=== PATIENT | female | born 1965 | race Caucasian/White ===

== ENCOUNTER 2021-08-11 10:40 | Inpatient (IN) ==
[2021-08-11] MEDS ORDERED: ASPIRIN 81 MG CHEW PO STA (11:21)
--- NOTE | 2021-08-11 11:26 | Emergency Department Note ---
Impression & Plan Unstable angina, Acute electrocardiogram changes ED Provider Note Name: CHANDU GLEZ Age: 56 Sex: F Arrives Via: Walk-In Informant: Patient, ED Provider: Meek Wong MD Chief Complaint: chest pain Impression: As Per Impressions above Medical Decision Makin yr old female without PMH who has 30pack yr smoking history arrives for evaluation substernal chest pain radiating to left neck and shoulder, worsening with exertion over the last week, though occurring at rest at times today. Chest pain while walking to room for EKG, though pain resolved on my evaluation shortly there-after. EKG initially with concerns for ischemia, repeat when pain free is essentially normal. Patient looks well and is breathing comfortably. Symptoms not consistent with PE/Dissection. Initial trop negative and other labs unremarkable. With dynamic EKG changes I am concerned for ACS as primary issue. She was given ASA 324mg PO and hospitalist consulted and will further address heparin start. Prior Medical Record and Triage/Nursing Notes reviewed by Me Differentials:Cardiac ischemia, aortic dissection, pulmonary embolism, pneumothorax, pneumonia, pericarditis, myocarditis, esophageal rupture, GERD, cholecystitis, pancreatitis, musculoskeletal, as well as other pathologies. Vital Signs: reviewed and remarkable for no significant abnormalities Interventions: asa 324mg po Labs:Reviewed and remarkable for no significant abnormalities Imaging:X ray results are stated below per my interpretation: Chest: 1 view: No infiltrate, no effusion, normal cardiac border. EKG: #1 @ 11:14am on 08/11/21: Per My Interpretation: Indication Chest pain: NSR 90 b pm, qtc 481 with RBBB, ST depressions I, aVL, and <1mm elevation III. No Ectopy. No previous EKG for comparison #2 @ 11:25am on 08/11/21: Per My Interpretation: Indication Resolution of chest pain: NSR 82 bpm, qtc 455. No Ectopy. No Ischemia. Compared to EKG at 11:14am there has been resolution of ischemic findings Cardiac/Tele Monitoring: Cardiac Monitoring: An Order was placed for continuous cardiac monitoring. The monitor shows a rate of 80 with a normal sinus rhythm. Consults:Anaid Hospitalist Plan: Disposition:Hospitalization. Condition: Good History of Present Illness:56 yr old female arrives for evaluation of left chest pain. Patient with 1 week of intermittent chest pains. Notes pain to left chest radiating to left neck and left upper arm. Associated with nausea. Notes some shortness of breath with exertion recently. Symptoms much worse with exertion, including coming in to ED this morning. Currently pain free. No medications taken for this. Rest makes better. Denies trauma, injuries, falls. No history CAD. She has history of smoking 1ppd since 18 yrs old. No drug use. No family history CAD. No previous cardiac work up. Denies PE/DVT history in her/family. ROS: See above HPI for pertinent positives & negatives. A total of 10 systems reviewed and were otherwise negative. Past Medical History:Depression/Anxiety Past Surgical History:None Family History:Mother DMII/HTN/COPD, Father Cancer Social History:Smokes 1ppd since 18 yrs old. 2 beers a night. No drugs. with 2 children. Employed Home Medications:None Allergies:None Vitals:Blood Pressure: 153/86, Pulse 102, RR 18, T 36.8C, O2 100% on RA Physical Exam: GENERAL: Patient is anxious appearing and in minimal distress. EYES: No scleral icterus, unremarkable pupils. ENT: Mucous membranes moist, no nasal congestion. NECK: No masses appreciated, nomeningismus, trachea is midline. RESPIRATORY: No dyspnea. Clear to auscultation and equal bilaterally. No wheeze, no rhonchi. CARDIOVASCULAR: Regular rate and rhythm.No murmurs, rubs, gallops appreciated. GASTROINTESTINAL: Abdomen soft, non-tender, no peritonitis.Bowel sounds posi tive.No masses appreciated. BACK: No midline tenderness, no CVA tenderness EXTREMITIES: Normal motion all extremities, no cyanosis, no edema. NEUROLOGIC: Alert and oriented, no acute motor or sensory deficits, no focal weakness, cranial nerves grossly intact. SKIN: No rash, no jaundice, no diaphoresis. PSYCH: Appropriate GCS: 15 ED Course: Times/Reassessments: stable, no further chest pain, agreeable to hospitalization Meek Wong MD Past Med/Surg History Medical History Depression with anxiety Tobacco abuse Surgical History History of colonoscopy Family History Father Cancer Mother Peripheral vascular disease Social History Smoking Status: Current every day smoker Tobacco Type: Cigarettes packs per day: 1; Years Smoked: 38; Do You Dip or Chew Tobacco: No; Tobacco Cessation Education Requested by Patient: No Hx Alcohol Use: Yes Alcohol type: beer Hx Substance Use: Yes Non-Prescribed Medications: Marijuana Non-Prescribed Medications Comment: tried edible marijuana 1 week ago x2 Last Used Substance: Days (ago) Substance Use Type Other:: Pt used edible marijuana x1 last week Preferred Language: Danish Communication Ability: Effective 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 Beliefs That Will Affect Care: None marital status: Single Current Living Situation: Family Current Living Situation Comment: Lives with Mother and fiance current occupational status: employed Feels Safe at Home: Yes Safety Concerns: Feels Safe At This Time Assistive Devices: None Allergies Allergies Allergy/AdvReac Type Severity Reaction Status Date / Time No Known Allergies Allergy Unverified 08/11/21 12:03 Home Meds Home Medications Medication Instructions Recorded Confirmed None (Patient States No Home Meds) #0 03/28/09 Results & Data (ED) Vital Signs Vital Signs - 24 hr 08/11/21 10:46 08/11/21 11:30 08/11/21 12:00 Temperature 36.8 C Temperature Source Temporal Artery Scan Pulse Rate 102 H 82 91 H Pulse Rate from SpO2 Sensor 81 Respiratory Rate 18 19 19 Respiratory Effort / Characteristics Non-Labored Respiratory Depth Normal Blood Pressure 153/86 H 159/63 H 152/77 H Blood Pressure Mean 108 95 102 Pulse Oximetry 100 98 100 Oxygen Delivery Method Room Air Sepsis Recent Fever Within 48 Hours No Sepsis New/Unexplained Change in Mental Status No Sepsis Action Taken by Nursing No Action Required 08/11/21 12:30 Temperature Temperature Source Pulse Rate 71 Pulse Rate from SpO2 Sensor 71 Respiratory Rate 18 Respiratory Effort / Characteristics Respiratory Depth Blood Pressure 134/73 Blood Pressure Mean 93 Pulse Oximetry 100 Oxygen Delivery Method Sepsis Recent Fever Within 48 Hours Sepsis New/Unexplained Change in Mental Status Sepsis Action Taken by Nursing Laboratory Data Result diagrams: 08/12/21 04:42 08/12/21 04:42 Lab Results 08/11/21 08/11/21 08/11/21 Range/Units 11:20 11:20 11:20 WBC 8.96 (4.8-10.8) K/uL RBC 4.86 (4.2-5.4) M/uL Hgb 16.2 H (12.0-16.0) g/dL Hct 47.7 H (37-47) % MCV 98.1 (80-100) fL MCH 33.3 (25-34) pg MCHC 34.0 (32-36) g/dL RDW Std Deviation 43.9 (36.4-46.3) fL RDW Coeff of Julia 12.2 (11.5-14.5) % Plt Count 309 (130-400) K/uL MPV 10.6 H (7.4-10.4) fL Immature Gran % (Auto) 0.2 % Neut % (Auto) 58.5 % Lymph % (Auto) 30.4 % [place] % (Auto) 8.5 % Eos % (Auto) 2.0 % Baso % (Auto) 0.4 % Neut # (Auto) 5.24 (1.4-6.5) K/uL Lymph # (Auto) 2.72 (1.2-3.4) K/uL [place] # (Auto) 0.76 H (0.11-0.59) K/uL Eos # (Auto) 0.18 (0-0.5) K/uL Baso # (Auto) 0.04 (0-0.2) K/uL Immature Gran # (Auto) 0.02 (0.00-0.02) K/uL PT 10.4 (9.0-12.0) Seconds INR 1.0 (0.9-1.1) APTT 29.3 (21.0-31.0) Seconds PTT Ratio 1.1 Sodium 136 (136-145) mmol/L Potassium 3.8 (3.5-5.1) mmol/L Chloride 106 (98-107) mmol/L Carbon Dioxide 26 (21-32) mmol/L Anion Gap 4.0 (3-11) BUN 8 (7-18) mg/dl Creatinine 0.89 (0.6-1.2) mg/dl Est Cr Clr Drug Dosing 60.0 ml/min Est GFR ( Amer) 85.2 ml/min Est GFR (Non-Af Amer) 73.5 ml/min BUN/Creatinine Ratio 8.9 L (10-20) Glucose 99 (70-99) mg/dl Calcium 9.6 (8.5-10.1) mg/dl Magnesium 2.4 (1.8-2.4) mg/dl Total Bilirubin 0.4 (0.2-1) mg/dl Direct Bilirubin 0.1 (0-0.2) mg/dl AST 16 (15-37) U/L ALT 26 (12-78) U/L Alkaline Phosphatase 85 (45-117) U/L Troponin I < 0.015 (0-0.045) ng/ml Total Protein 8.0 (6.4-8.2) gm/dl Albumin 3.8 (3.4-5.0) gm/dl Lipase 104 (73-393) U/L COVID-19 Eval Order SARS-CoV-2 (PCR) (Negative) 08/11/21 08/11/21 Range/Units 11:36 11:36 WBC (4.8-10.8) K/uL RBC (4.2-5.4) M/uL Hgb (12.0-16.0) g/dL Hct (37-47) % MCV (80-100) fL MCH (25-34) pg MCHC (32-36) g/dL RDW Std Deviation (36.4-46.3) fL RDW Coeff of Julia (11.5-14.5) % Plt Count (130-400) K/uL MPV (7.4-10.4) fL Immature Gran % (Auto) % Neut % (Auto) % Lymph % (Auto) % [place] % (Auto) % Eos % (Auto) % Baso % (Auto) % Neut # (Auto) (1.4-6.5) K/uL Lymph # (Auto) (1.2-3.4) K/uL [place] # (Auto) (0.11-0.59) K/uL Eos # (Auto) (0-0.5) K/uL Baso # (Auto) (0-0.2) K/uL Immature Gran # (Auto) (0.00-0.02) K/uL PT (9.0-12.0) Seconds INR (0.9-1.1) APTT (21.0-31.0) Seconds PTT Ratio Sodium (136-145) mmol/L Potassium (3.5-5.1) mmol/L Chloride (98-107) mmol/L Carbon Dioxide (21-32) mmol/L Anion Gap (3-11) BUN (7-18) mg/dl Creatinine (0.6-1.2) mg/dl Est Cr Clr Drug Dosing ml/min Est GFR ( Amer) ml/min Est GFR (Non-Af Amer) ml/min BUN/Creatinine Ratio (10-20) Glucose (70-99) mg/dl Calcium (8.5-10.1) mg/dl Magnesium (1.8-2.4) mg/dl Total Bilirubin (0.2-1) mg/dl Direct Bilirubin (0-0.2) mg/dl AST (15-37) U/L ALT (12-78) U/L Alkaline Phosphatase (45-117) U/L Troponin I (0-0.045) ng/ml Total Protein (6.4-8.2) gm/dl Albumin (3.4-5.0) gm/dl Lipase (73-393) U/L COVID-19 Eval Order Covid19 at [facility] SARS-CoV-2 (PCR) NEGATIVE (Negative) Administered Medications Heparin Sodium/Dextrose (Heparin Sodium/Dextrose) 25,000 units in 500 mls @ 18 mls/hr IV .Q24H HARRIS; Protocol Stop: 09/10/21 14:14 Last Admin: 08/11/21 22:51 Dose: 18 units/hr, 0.4 mls/hr Documented by: [id number] Cosigned by: [id number] Metoprolol Tartrate (Metoprolol Tartrate 25 Mg Tab) 12.5 mg PO BID HARRIS Stop: 09/10/21 20:59 Last Admin: 08/11/21 20:49 Dose: 12.5 mg Documented by: [id number] Discontinued Medications Aspirin (Aspirin 81 Mg Chew) 324 mg PO NOW STA Stop: 08/11/21 11:22 Last Admin: 08/11/21 11:37 Dose: 324 mg Documented by: [id number] Heparin Sodium (Porcine) (Heparin Sod (Porcine) 1000 Unit/Ml) Confirm Administered Dose 1,000 units .ROUTE .STK-MED ONE Stop: 08/11/21 14:23 Last Admin: 08/11/21 14:39 Dose: 4,000 units Documented by: [id number] Cosigned by: [id number] Heparin Sodium/Dextrose (Heparin 55038 Unit/500 Ml D5w) Confirm Administered Dose 25,000 units IV .STK-MED ONE Stop: 08/11/21 14:23 Last Admin: 08/11/21 14:39 Dose: 950 units Documented by: [id number] Cosigned by: [id number] Metoprolol Tartrate (Metoprolol Tartrate 25 Mg Tab) 12.5 mg PO NOW STA Stop: 08/11/21 13:53 Last Admin: 08/11/21 14:40 Dose: 12.5 mg Documented by: [id number] Miscellaneous (Heparin Drip Hold - Pending Order) 1 ea N/A TODAY@0400 ONE Stop: 08/12/21 04:01 Last Admin: 08/12/21 04:40 Dose: 1 ea Documented by: [id number] Discharge Plan Visit Data Chief Complaint: Chest Pain Stated Complaint: CHEST PAIN INTO LEFT NECK,ARM AND SHOULDER ED Provider: Meek Wong Discharge Problem: Unstable angina, Acute electrocardiogram changes Patient Disposition: Admitted As Inpatient Discharge Instructions Interventions: ED Discharge Assessment Last Done: 08/11/21 16:56
--- NOTE | 2021-08-11 11:44 | XRay Report ---
XR chest 1V portable CLINICAL HISTORY: left chest pain TECHNIQUE: Single frontal radiograph of the chest was obtained. Comparison: None available at the time of this dictation. FINDINGS: No lines and tubes are seen. The cardiomediastinal silhouette is normal. The lungs are clear. No evid ence of pleural effusion or pneumothorax. IMPRESSION: No acute chest disease. ACT 112: Negative or not required by law. Electronically signed by: Leighton Raza M.D. 08/11/2021 11:42 AM
[2021-08-11 11:49] LABS: Alanine Aminotransferase 26 U/L (12-78); Albumin Level 3.8 gm/dl (3.4-5.0); Aspartate Aminotransferase 16 U/L (15-37); BUN Creatinine Ratio 8.9 (10-20); Bilirubin Direct 0.1 mg/dl (0-0.2); Blood Urea Nitrogen 8 mg/dl (7-18); Calcium 9.6 mg/dl (8.5-10.1); Carbon Dioxide 26 mmol/L (21-32); Chloride 106 mmol/L (98-107); Est GFR (African American) 85.2 ml/min; Est GFR (Non-African American) 73.5 ml/min; Glucose 99 mg/dl (70-99); Lipase 104 U/L (73-393); Magnesium 2.4 mg/dl (1.8-2.4); Potassium 3.8 mmol/L (3.5-5.1); Sodium 136 mmol/L (136-145)
[2021-08-11 11:51] LABS: Partial Thromboplastin Ratio 1.1; Partial Thromboplastin Time 29.3 Seconds (21.0-31.0); Prothrombin Time 10.4 Seconds (9.0-12.0)
[2021-08-11 11:54] LABS: Alkaline Phosphatase 85 U/L (45-117); Bilirubin,Total 0.4 mg/dl (0.2-1); Troponin I < 0.015 ng/ml (0-0.045)
[2021-08-11 12:07] LABS: Basophils # (auto) 0.04 K/uL (0-0.2); Basophils % (auto) 0.4 %; Eosinophils # (auto) 0.18 K/uL (0-0.5); Hematocrit (blood only) 47.7 % (37-47); Hemoglobin 16.2 g/dL (12.0-16.0); Immature Granulocytes # (auto) 0.02 K/uL (0.00-0.02); Immature Granulocytes % (auto) 0.2 %; Lymphocytes # (auto) 2.72 K/uL (1.2-3.4); Lymphocytes % (auto) 30.4 %; Mean Corpuscular Hemoglobin 33.3 pg (25-34); Mean Corpuscular Volume 98.1 fL (80-100); Mean Platelet Volume 10.6 fL (7.4-10.4); Monocytes # (auto) 0.76 K/uL (0.11-0.59); Monocytes % (auto) 8.5 %; Neutrophils # (auto) 5.24 K/uL (1.4-6.5); Neutrophils % (auto) 58.5 %; Platelet Count 309 K/uL (130-400); RDW Coefficient of Variation 12.2 % (11.5-14.5); RDW Standard Deviation 43.9 fL (36.4-46.3); Red Blood Count 4.86 M/uL (4.2-5.4); White Blood Count 8.96 K/uL (4.8-10.8)
--- NOTE | 2021-08-11 13:41 | History & Physical Report ---
Date of Service August 11, 2021 Assessment & Plan (1) Chest pain: (2) Acute electrocardiogram changes: Plan: This is a 56-year-old female with significant past medical history of depression with anxiety, tobacco abuse and alcohol abuse who presents to ED after exp eriencing chest pain off and on x1 week. She initially noticed symptoms approximately 1 week ago when she was at rest. Pt presenting with exertional EKG changes resolving at rest with a normal first troponin concerning for coronary ischemia Admit to PCU consult Cardiology - discussed with Dr. Rios IV Heparin Start metoprolol 12.5mg bid, with first dose now NPO after midnight cycle trops a1c, lipid panel in a.m. pt with elevated hgb, maybe in setting of volume contraction vs smoking, will repeat in a.m. (3) Tobacco abuse: Plan: encourage smoking cessation given concern for ACS will hold on nicotine patch (4) Alcohol use: Plan: drinks 2 light beers daily, last drink 08/10 awss prn protocol (5) Depression with anxiety: Plan: pt with increase in anx due to social stressors encourage her to discuss with PCP post hospitalization to develop approp treatment regimen (6) DVT prophylaxis: Plan: SCDS Pt on IV heparin Dispo: PCU FULL CODE PCP: Daisy Brandt, PAC Pt was seen and examined in collaboration with Dr. Collado, please see addendum History of Present Illness Chief Complaint: Chest pain off and on x 1 week. Primary Care Provider: Sugey Brandt This is a 56-year-old female with significant past medical history of depression with anxiety, tobacco abuse and alcohol abuse who presents to ED after experiencing chest pain off and on x1 week. She initially noticed symptoms approximately 1 week ago when she was at rest. She developed left- sided chest pain that radiated to her left shoulder blade, her left jaw and her left arm that lasted approximately 1 minute. She felt this was all out and continue to monitor her symptoms. Over the past week she has had off-and-on symptoms. 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 Her symptoms were exactly the same, she rested and symptoms resolved in 1 minute. One time she did experience nausea when pain was slightly worse, but she is unable to tell if she is experiencing diaphoresis due to going through, "changes of life." She denies any lightheadedness, dizziness, palpitations or shortness of breath. She does admit to having a significant amount of stress in life as her 76-year-old mother does live with her. She feels like she has the same routine day in and day out and is unable to do anything. She has always been an anxious person throughout her life but has significantly gotten much worse. She admits to needing to discuss this with her primary care doctor. She is a never experienc ed symptoms like this in the past. Due to her recent symptoms she opted to be evaluated in ED today. Upon walking from the waiting room back to her room in situ an EKG was obtained which revealed T wave inversions in V1 V2 as well as right bundle jerome block and nonspecific ST changes in leads II and III. An EKG approximately 10 minutes later revealed normal sinus rhythm and normal ST and T waves throughout. She is a 1 pack/day smoker over the past 38 years. She drinks 2 beers a day. She does not take any prescription medicine and does not follow with a doctor regularly. Her mother has a known history of vascular disease requiring stents in her neck as well as her extremities but denies any history of heart disease. She is unaware of father's medical problems except for cancer as she states, "I did not know him." She has otherwise been in her normal state of health. In ED patient's vital signs remained stable. Her initial troponin was negative. She did receive 324 mg of aspirin. Allergies Allergy/AdvReac Type Severity Reaction Status Date / Time No Known Allergies Allergy Unverified 08/11/21 12:03 Past Med/Surg History Medical History Depression with anxiety Tobacco abuse Surgical History History of colonoscopy Family History Father Cancer Mother Peripheral vascular disease Social History Smoking Status: Current every day smoker Tobacco Type: Cigarettes packs per day: 1; Years Smoked: 38; Do You Dip or Chew Tobacco: No; Tobacco Cessation Education Requested by Patient: No Hx Alcohol Use: Yes Alcohol type: beer Hx Substance Use: Yes Non-Prescribed Medications: Marijuana Non-Prescribed Medications Comment: tried edible marijuana 1 week ago x2 Last Used Substance: Days (ago) Substance Use Type Other:: Pt used edible marijuana x1 last week Preferred Language: Sami Communication Ability: Effective 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 Beliefs That Will Affect Care: None marital status: Single Current Living Situation: Family Current Living Situation Comment: Lives with Mother and fiance current occupational status: employed Feels Safe at Home: Yes Safety Concerns: Feels Safe At This Time Review of Systems Review of Systems: All systems reviewed & are unremarkable except as noted in HPI & below Physical Exam Physical Exam: Constitutional: WD/WN, vitals as above, NAD, sitting up in bed, pleasant but anxious and tearful, conversing easily Head: Normocephalic, Atraumatic Eyes: PERRL, conjunctivae normal, anicteric sclerae ENMT: external ear and nose normal, oropharynx normal Neck: trachea midline, no thyromegaly normal visual inspection Respiratory: normal respiratory effort, lungs clear to auscultation, no wheeze, rales, rhonchi. Normal insp/exp effort, no accessory muscle use Cardiovascular: RRR, no murmur, no edema Vessels: no JVD or carotid bruit Chest: normal inspection of chest Abdomen: normal bowel sounds, soft, nontender, no hepatosplenomegaly Musculoskeletal: no cyanosis or clubbing, extremities motor strength 5/5 Skin: no rashes, warm and dry normal turgor Neurologic: PERRL, EOMI, accommodation nl, no face palsy, no dysarthria CN's II-XI intact bilaterally and moves all extremities Psychiatric: A+Ox3, euthymic affect Lymphatic: no cervical or axillary lymphadenopathy : deferred Results & Data Results & Data ([facility]) Vital Signs (Past 12 Hours) Vital Signs Temp Pulse Resp BP Pulse Ox 08/11/21 10:46 36.8 C 102 H 18 153/86 H 100 Diagnostic Findings Chest X-Ray 08/11/21 11:22 XR chest 1V portable CLINICAL HISTORY: left chest pain TECHNIQUE: Single frontal radiograph of the chest was obtained. Comparison: None available at the time of this dictation. FINDINGS: No lines and tubes are seen. The cardiomediastinal silhouette is normal. The lungs are clear. No evidence of pleural effusion or pneumothorax. IMPRESSION: No acute chest disease. ACT 112: Negative or not required by law. Electronically signed by: Leighton Raza M.D. 08/11/2021 11:42 AM Medications Administered Medication List Discontinued Medications Aspirin (Aspirin 81 Mg Chew) 324 mg PO NOW STA Stop: 08/11/21 11:22 Last Admin: 08/11/21 11:37 Dose: 324 mg Documented by: [id number] ECG Rate (beats per minute): 90 Rhythm: normal sinus Findings: + T-wave inversion and + ST elevation Additional Comments: Initial EKG at 1114 revealed normal sinus rhythm at 90 bpm, T wave inversion in V1 V2, right bundle branch block, ST wave nonspecific changes in leads II and III EKG at 1125 revealed normal sinus rhythm at [address] or T wave changes. Right bundle branch block also noted. COVID-19 Results Results COVID-19 Adm Lab Results: RBC 4.86 M/uL (4.2-5.4) 08/11/21 WBC 8.96 K/uL (4.8-10.8) 08/11/21 Hgb 16.2 g/dL (12.0-16.0) H 08/11/21 Hct 47.7 % (37-47) H 08/11/21 Plt Count 309 K/uL (130-400) 08/11/21 Neutrophils (%) (Auto) 58.5 % 08/11/21 Lymphocytes (%) (Auto) 30.4 % 08/11/21 Monocytes # (Auto) 0.76 K/uL (0.11-0.59) H 08/11/21 Eosinophils # (Auto) 0.18 K/uL (0-0.5) 08/11/21 Immature Granulocyte % (Auto) 0.2 % 08/11/21 Neutrophils # (Auto) 5.24 K/uL (1.4-6.5) 08/11/21 Lymphocytes # (Auto) 2.72 K/uL (1.2-3.4) 08/11/21 Monocytes # (Auto) 0.76 K/uL (0.11-0.59) H 08/11/21 Eosinophils # (Auto) 0.18 K/uL (0-0.5) 08/11/21 Basophils # (Auto) 0.04 K/uL (0-0.2) 08/11/21 Immature Granulocyte # (Auto) 0.02 K/uL (0.00-0.02) 08/11/21 Na 136 mmol/L (136-145) 08/11/21 K 3.8 mmol/L (3.5-5.1) 08/11/21 Cl 106 mmol/L (98-107) 08/11/21 CO2 26 mmol/L (21-32) 08/11/21 Anion Gap 4.0 (3-11) 08/11/21 BUN 8 mg/dl (7-18) 08/11/21 Creatinine 0.89 mg/dl (0.6-1.2) 08/11/21 BUN/Creatinine Ratio 8.9 (10-20) L 08/11/21 Glucose Level 99 mg/dl (70-99) 08/11/21 Ca 9.6 mg/dl (8.5-10.1) 08/11/21 Total Bilirubin 0.4 mg/dl (0.2-1) 08/11/21 Direct Bilirubin 0.1 mg/dl (0-0.2) 08/11/21 AST/SGOT 16 U/L (15-37) 08/11/21 ALT/SGPT 26 U/L (12-78) 08/11/21 Alkaline Phosphatase 85 U/L (45-117) 08/11/21 Total Protein 8.0 gm/dl (6.4-8.2) 08/11/21 Albumin 3.8 gm/dl (3.4-5.0) 08/11/21 Troponin I < 0.015 ng/ml (0-0.045) 08/11/21 PTT 29.3 Seconds (21.0-31.0) 08/11/21 INR 1.0 (0.9-1.1) 08/11/21 COVID-19 PCR NEGATIVE (Negative) 08/11/21 Chest X-Ray 08/11/21 Code Status & VTE Plan Code Status Full code VTE Prophylaxis Plan VTE Prophylaxis will be ordered: Yes Supervising Physician Co-Signing Physician Notes Chest pain Patient presents iwth left sided chest pain radiaitng to neck and jaw. Reports the pain has been going on for one week, intermittnet, worse with exertion, 5/10. Denies any palpitaitons, dizziness, cough or pleuritic component. She is active smoker. Constuls cardioloyg. Start heparing gtt. Trend CE. I performed a history and physical examination of the patient on 08/11/21, including specifically H&P. I have discussed the patient's management with the advanced practitioner. Please refer to the Lois Rosenberg note for the documented findings and plan of care.
[2021-08-11] MEDS ORDERED: METOPROLOL TARTRATE 25 MG TAB PO STA (13:52)
--- NOTE | 2021-08-11 14:03 | Electrocardiogram Report ---
Test Reason : Blood Pressure : / mmHG Vent. Rate : 082 BPM Atrial Rate : 082 BPM P-R Int : 120 ms QRS Dur : 092 ms QT Int : 390 ms P-R-T Axes : 070 059 075 degrees QTc Int : 455 ms Normal sinus rhythm Possible Left atrial enlargement Incomplete right bundle branch block Borderline ECG When compared with ECG of 11-AUG-2021 11:14, (unconfirmed) T wave inversion no longer evident in Lateral leads Confirmed by Casper Quintana ([id number]) on 08/11/2021 2:02:41 PM Referred By: ER Confirmed By:Pradip Quintana
--- NOTE | 2021-08-11 14:04 | Electrocardiogram Report ---
Test Reason : Blood Pressure : / mmHG Vent. Rate : 090 BPM Atrial Rate : 090 BPM P-R Int : 114 ms QRS Dur : 096 ms QT Int : 394 ms P-R-T Axes : 073 055 096 degrees QTc Int : 481 ms Age and gender specific ECG analysis Normal sinus rhythm Possible Left atrial enlargement Incomplete right bundle branch block ST elevation consider inferior injury or acute infarct Abnormal ECG No previous ECGs available Confirmed by Casper Quintana ([id number]) on 08/11/2021 2:04:34 PM Referred By: ER Confirmed By:Pradip Quintana
[2021-08-11] MEDS ORDERED: Heparin IV Adult Wt-Based Standard WITH Bolus Protocol IV SCH (14:08)
[2021-08-11] MEDS ORDERED: HEPARIN SODIUM/DEXTROSE 25,000 UNITS/500 ML BAG IV SCH (14:15)
[2021-08-11] MEDS ORDERED: HEPARIN SOD (PORCINE) 1000 UNIT/ML ONE (14:22)
[2021-08-11] MEDS ORDERED: HEPARIN 25000 UNIT/500 ML D5W IV ONE (14:22)
[2021-08-11] MEDS ORDERED: LORazepam 1 MG TAB PO PRN (16:51)
[2021-08-11] MEDS ORDERED: ALUMINUM/MAGNESIUM SUSP 30 ML UDC PO PRN (16:51)
[2021-08-11] MEDS ORDERED: ACETAMINOPHEN 325 MG TAB PO PRN (16:51)
[2021-08-11] MEDS ORDERED: ONDANSETRON INJ 2 MG/ML 2 ML VIAL IV PRN (16:51)
[2021-08-11] MEDS ORDERED: MAGNESIUM HYDROXIDE SUSP 30 ML UDC PO PRN (16:51)
[2021-08-11] MEDS ORDERED: NITROGLYCERIN SL 0.4 MG/TAB TAB SL PRN (16:51)
[2021-08-11] MEDS ORDERED: POLYETHYLENE (MIRALAX) 17 GM PACK PO PRN (16:51)
--- NOTE | 2021-08-11 17:04 | Cardiology Consultation ---
Date of Consultation August 11, 2021 Assessment & Plan (1) Chest pain: 56-year-old female dedicated smoker presents with chest discomfort, some characteristics concerning for angina, and some somewhat atypical, occurring at rest as well as with physical exertion. The patient has a family history of significant cerebrovascular and peripheral arterial disease in her mother Her initial EKG today at 1114 was performed just as she was walked in from the registration area, and revealed sinus rhythm with incomplete right bundle branch block, subtle ST segment elevation specifically in lead III with lateral ST segment depression in lead I and aVL. She states that when this tracing was o btained she felt "anxious "but no definite angina. A repeat tracing performed 11 minutes later at 11:25 AM revealed redemonstration the incomplete right bundle branch block however at the inferior ST segment elevation as well as the lateral T wave changes specifically in lead I had resolved. Troponin I is negative x2 thus far. Proceed with medication therapy including aspirin and metoprolol. Draw fasting lipid panel, and will trend a third troponin I level. Patient to be n.p.o. after midnight, for further ischemic work-up tomorrow. History of Present Illness Attending Physician: Fan Collado MD History of Present Illness Analia Mahan is a 56 year old female seen in cardiology consultation per the request of Lois Samano PA-C for the evaluation of chest discomfort. Patient has known followed with cardiology in the past. She is a chronic cigarette smoker, and smokes 1 pack/day for many years. She notes that for the last 1 week she has had on and off again chest discomfort that radiates from her left chest into her left shoulder and upper arm, and into her neck and jaw and describes it as a tightness. She states that it has occurred recently with exertion, but she is also noted rest, 2 nights ago she had a 3 times while she was sleeping. She does have a history of anxiety, but she does not describe that it is associated with worsening anxiety. She denies any associated lightheadedness or associated symptom of elevated heart rate. Her most recent episode complaints yesterday, but she became concerned and therefore came in today. During my discussion with her, she was comfortable, on a heparin infusion. Family History: Mother , age 77 has history of bilateral carotid endarterectomy peripheral arterial disease She is unaware of her father's history She has no siblings Social History: Smokes 1 pack/day of cigarettes Allergies Allergy/AdvReac Type Severity Reaction Status Date / Time No Known Allergies Allergy Unverified 08/11/21 12:03 Patient History Medical History Depression with anxiety Tobacco abuse Surgical History History of colonoscopy Family History Father Cancer Mother Peripheral vascular disease Social History Smoking Status: Current every day smoker Tobacco Type: Cigarettes packs per day: 1; Years Smoked: 38; Do You Dip or Chew Tobacco: No; Tobacco Cessation Education Requested by Patient: No Hx Alcohol Use: Yes (2) Alcohol type: beer Hx Substance Use: Yes Non-Prescribed Medications: Marijuana Non-Prescribed Medications Comment: tried edible marijuana 1 week ago x2 Preferred Language: Occitan marital status: Single Current Living Situation: Family Current Living Situation Comment: Lives with Mother and fiance current occupational status: employed Feels Safe at Home: Yes Review of Systems Review of Systems: All systems reviewed & are unremarkable except as noted in HPI & below Physical Exam Physical Exam: Temp Pulse Resp BP Pulse Ox 36.8 C 83 17 149/95 H 98 08/11/21 10:46 08/11/21 16:30 08/11/21 16:30 08/11/21 16:30 08/11/21 16:30 Constitutional: WD/WN, vitals as above Respiratory: normal respiratory effort, lungs clear to auscultation Cardiovascular: RRR, no murmur, no edema Gastrointestinal (Abdomen): normal bowel sounds, soft, nontender, no hepatosplenomegaly Neurologic: PERRL, EOMI, accommodation nl, no face palsy, no dysarthria Results & Data ([facility]) Vital Signs (Past 12 Hours) Vital Signs Temp Pulse Resp BP Pulse Ox 08/11/21 16:30 83 17 149/95 H 98 08/11/21 16:00 73 16 132/101 H 98 08/11/21 15:30 67 14 137/88 98 08/11/21 15:00 71 17 152/87 H 98 08/11/21 14:30 81 14 148/97 H 08/11/21 14:00 71 22 98 08/11/21 13:30 76 17 145/86 H 97 08/11/21 13:09 77 21 08/11/21 12:30 71 18 134/73 100 08/11/21 12:00 91 H 19 152/77 H 100 08/11/21 11:30 82 19 159/63 H 98 08/11/21 10:46 36.8 C 102 H 18 153/86 H 100 Laboratory Results Cardiac Enzymes 08/11/21 08/11/21 Range/Units 11:20 16:13 AST 16 (15-37) U/L Troponin I < 0.015 < 0.015 (0-0.045) ng/ml Coagulation 08/11/21 Range/Units 11:20 PT 10.4 (9.0-12.0) Seconds APTT 29.3 (21.0-31.0) Seconds CBC 08/11/21 Range/Units 11:20 WBC 8.96 (4.8-10.8) K/uL RBC 4.86 (4.2-5.4) M/uL Hgb 16.2 H (12.0-16.0) g/dL Hct 47.7 H (37-47) % Plt Count 309 (130-400) K/uL Neut # (Auto) 5.24 (1.4-6.5) K/uL Lymph # (Auto) 2.72 (1.2-3.4) K/uL [place] # (Auto) 0.76 H (0.11-0.59) K/uL Eos # (Auto) 0.18 (0-0.5) K/uL Baso # (Auto) 0.04 (0-0.2) K/uL Comprehensive Metabolic Panel 08/11/21 Range/Units 11:20 Sodium 136 (136-145) mmol/L Potassium 3.8 (3.5-5.1) mmol/L Chloride 106 (98-107) mmol/L Carbon Dioxide 26 (21-32) mmol/L BUN 8 (7-18) mg/dl Creatinine 0.89 (0.6-1.2) mg/dl Glucose 99 (70-99) mg/dl Calcium 9.6 (8.5-10.1) mg/dl Direct Bilirubin 0.1 (0-0.2) mg/dl AST 16 (15-37) U/L ALT 26 (12-78) U/L Alkaline Phosphatase 85 (45-117) U/L Total Protein 8.0 (6.4-8.2) gm/dl Albumin 3.8 (3.4-5.0) gm/dl Intake and Output 08/11/21 08/11/21 08/11/21 06:59 14:59 22:59 Other: Weight 59.9 kg Weight Measurement Method Chair Scale Patient Weight 08/12/21 06:59 Weight 59.9 kg
[2021-08-11] MEDS ORDERED: METOPROLOL TARTRATE 25 MG TAB PO SCH (21:00)
[2021-08-11 21:53] LABS: Partial Thromboplastin Ratio 2.7
[2021-08-11 22:02] LABS: Partial Thromboplastin Time 72.3 Seconds (21.0-31.0)
[2021-08-12 05:02] LABS: Hematocrit (blood only) 44.4 % (37-47); Hemoglobin 15.3 g/dL (12.0-16.0); Mean Corpuscular Hgb Conc 34.5 g/dL (32-36); Mean Corpuscular Volume 95.9 fL (80-100); Mean Platelet Volume 10.3 fL (7.4-10.4); Platelet Count 303 K/uL (130-400); RDW Coefficient of Variation 12.4 % (11.5-14.5); RDW Standard Deviation 43.2 fL (36.4-46.3); Red Blood Count 4.63 M/uL (4.2-5.4); White Blood Count 8.61 K/uL (4.8-10.8)
[2021-08-12 05:16] LABS: Partial Thromboplastin Ratio 1.4; Partial Thromboplastin Time 37.6 Seconds (21.0-31.0)
[2021-08-12 05:28] LABS: Albumin Level 3.4 gm/dl (3.4-5.0); BUN Creatinine Ratio 13.9 (10-20); Calcium 9.3 mg/dl (8.5-10.1); Est GFR (African American) 88.8 ml/min; Est GFR (Non-African American) 76.6 ml/min; Magnesium 2.2 mg/dl (1.8-2.4)
[2021-08-12 05:32] LABS: Albumin Globulin Ratio 0.9 (0.9-2); Bilirubin,Total 0.4 mg/dl (0.2-1); Globulin 3.6 gm/dl (2.5-4.0)
[2021-08-12 07:22] LABS: Estimated Average Glucose 105 mg/dl; Hemoglobin A1C 5.3 % (4.5-5.6)
[2021-08-12] MEDS ORDERED: ASPIRIN 81 MG ECTAB PO SCH (09:00)
--- NOTE | 2021-08-12 09:55 | Cardiology Progress Note ---
Date of Service August 12, 2021 Assessment & Plan (1) Chest pain: (2) Tobacco abuse: Plan: I am not certain what to make of the initial EKG that showed subtle ST segment elevation in lead III, and T wave inversion in the high lateral leads specifically aVL. The patient was not in acute distress at that time, and 11 minutes later, her EKG was normal. Troponin I has been undetectable x3. Some characteristics of her presenting symptoms are suggestive angina, however they occur both at rest and with exertion. 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 The patient underwent an exercise stress echocardiogram exercising to stage II of a Kal protocol, with no symptoms suggestive of angina induced. Her presenting symptoms were not reproduced. The EKG and echocardiographic response to exercise was normal without evidence of ischemia. Although the patient has significant risk factors for coronary heart disease based on her family history and her personal history of smoking, I do not think her presenting symptom was due to angina at this point. Her symptoms raise the concern for cervical radiculopathy and recommend evaluation for such. Her LDL cholesterol is in the 90s, and pharmacologic therapy is not felt to be warranted. I discussed smoking cessation with her at length. No additional cardiac work-up is felt to be indicated at present, recommend cervical radiculopathy work-up, possibly physical therapy, follow-up with PCP. If she has additional breakthrough episodes upon follow-up, future considerations also include placing a 7-day ZIO monitor to exclude occult arrhythmias as an alternative cause of her symptoms. The patient however notes that she seems to be able to improve her symptoms with turning her neck. Admission and Anticipated Discharge Date Admission Date: August 11, 2021 Subjective Patient seen in follow up prior to, during , and after stress echocardiogram. Troponin negative x3 overnight, repeat EKG this morning was normal. No recurrent anginal symptoms. Review of Systems Review of Systems: All systems reviewed & are unremarkable except as noted in HPI & below Physical Exam Physical Exam: Temp Pulse Resp BP Pulse Ox 36.6 C 66 19 139/65 98 08/12/21 08:00 08/12/21 08:00 08/12/21 08:00 08/12/21 08:00 08/12/21 08:00 Constitutional: WD/WN, vitals as above Respiratory: normal respiratory effort, lungs clear to auscultation Cardiovascular: RRR, no murmur, no edema Gastrointestinal (Abdomen): normal bowel sounds, soft, nontender, no hepatosplenomegaly Neurologic: PERRL, EOMI, accommodation nl, no face palsy, no dysarthria Results & Data ([facility]) Vital Signs (Past 12 Hours) Vital Signs Temp Pulse Pulse Resp BP Pulse Ox Pulse Ox 08/12/21 08:00 36.6 C 66 66 19 139/65 98 98 08/12/21 04:10 36.7 C 80 16 118/55 L 99 08/12/21 00:46 36.7 C 73 16 132/59 L 96 08/12/21 00:00 96 Laboratory Results Cardiac Enzymes 08/11/21 08/11/21 08/11/21 Range/Units 11:20 16:13 20:57 AST 16 (15-37) U/L Troponin I < 0.015 < 0.015 < 0.015 (0-0.045) ng/ml 08/12/21 Range/Units 04:42 AST 17 (15-37) U/L Troponin I (0-0.045) ng/ml Coagulation 08/11/21 08/11/21 08/12/21 Range/Units 11:20 20:57 04:42 PT 10.4 (9.0-12.0) Seconds APTT 29.3 72.3 H* 37.6 H (21.0-31.0) Seconds Lipids 08/12/21 Range/Units 04:42 Triglycerides 95 (0-150) mg/dl Cholesterol 207 H (0-200) mg/dl HDL Cholesterol 95 mg/dl Cholesterol/HDL Ratio 2 CBC 08/11/21 08/12/21 Range/Units 11:20 04:42 WBC 8.96 8.61 (4.8-10.8) K/uL RBC 4.86 4.63 (4.2-5.4) M/uL Hgb 16.2 H 15.3 (12.0-16.0) g/dL Hct 47.7 H 44.4 (37-47) % Plt Count 309 303 (130-400) K/uL Neut # (Auto) 5.24 (1.4-6.5) K/uL Lymph # (Auto) 2.72 (1.2-3.4) K/uL [place] # (Auto) 0.76 H (0.11-0.59) K/uL Eos # (Auto) 0.18 (0-0.5) K/uL Baso # (Auto) 0.04 (0-0.2) K/uL Comprehensive Metabolic Panel 08/11/21 08/12/21 Range/Units 11:20 04:42 Sodium 136 138 (136-145) mmol/L Potassium 3.8 4.0 (3.5-5.1) mmol/L Chloride 106 108 H (98-107) mmol/L Carbon Dioxide 26 27 (21-32) mmol/L BUN 8 12 (7-18) mg/dl Creatinine 0.89 0.86 (0.6-1.2) mg/dl Glucose 99 99 (70-99) mg/dl Calcium 9.6 9.3 (8.5-10.1) mg/dl Direct Bilirubin 0.1 (0-0.2) mg/dl AST 16 17 (15-37) U/L ALT 26 24 (12-78) U/L Alkaline Phosphatase 85 76 (45-117) U/L Total Protein 8.0 7.0 (6.4-8.2) gm/dl Albumin 3.8 3.4 (3.4-5.0) gm/dl Intake and Output 08/11/21 08/12/21 08/12/21 22:59 06:59 14:59 Intake Total 200 / 200 Balance 200 / 200 Intake: Oral 200 / 200 Other: # Unmeasured Voids 3 3 Weight 63 kg 59 kg Weight Measurement Method Built in [facility] Built in [facility]
--- NOTE | 2021-08-12 13:30 | Magnetic Resonance Report ---
MR cervical spine wo con CLINICAL HISTORY: Neck pain radiating into the left arm and left jaw.. COMPARISON: None. TECHNIQUE: Multiplanar multisequence images of the Cervical Spine were performed without IV contrast . FINDINGS: There is no evidence for vertebral body fracture. The heights of the vertebral bodies are maintained. The vertebral bodies are in anatomic alignment. Heterogeneous marrow signal is seen without evidence for marrow edema or marrow replacement. These findings most likely related to a combination of osteo penia and degenerative change. The odontoid is intact and the atlantoaxial articulation is within nor mal limits. The craniocervical junction is within normal limits. Homogeneous signal is seen within th e spinal cord. C2-3: The disc space height is maintained. There are no focal disc protrusions or extrusions identi fied. The spinal canal is patent with no encroachment upon the spinal cord. The neural foramen are p atent bilaterally. There is no evidence for nerve root encroachment. The apophyseal joints are within normal limits. C3-4: The disc space height is maintained. There are no focal disc protrusions or extrusions identi fied. The spinal canal is patent with no encroachment upon the spinal cord. The neural foramen are p atent bilaterally. There is no evidence for nerve root encroachment. The apophyseal joints are within normal limits. C4-5: There is moderate to marked disc space narrowing with disc/osteophyte complex projecting into the spinal canal anteriorly. There are no focal disc protrusions or extrusions identified. However, this abuts the anterior margin of the spinal cord without compressing or deforming the spinal cord. There is decreased CSF surrounding the spinal cord and the findings are characteristic of mild centra l canal stenosis. The neural foramen are patent bilaterally. There is no evidence for nerve root encr oachment. The apophyseal joints are within normal limits. C5-6: There is moderate to marked disc space narrowing. There is a broad-based disc protrusion/adalberto iation present measuring 3 to 4 mm. This encroaches upon the spinal canal and compresses the anterio r margin of the spinal cord. There is loss of CSF surrounding the spinal cord and the findings repres ent mild to moderate central canal stenosis at this level. Additionally, there is bilateral foraminal encroachment, right greater than left. There is suspicion of right-sided nerve root encroachment. Mi ld degenerative apophyseal joint disease is also present bilaterally. C6-7: There is moderate disc space narrowing with diffuse bulging of the annulus measuring 2 mm. Th ere are no focal disc protrusions or extrusions identified. Bulging annulus encroaches upon the spin al canal anteriorly and abuts the anterior margin spinal cord. However, no compression upon the spina l cord is seen and there is no significant spinal stenosis at this level. However, there is mild asym metric right foraminal encroachment. Presence of right nerve root impingement cannot be excluded. Asy mmetric degenerative apophyseal joint disease is also seen on the right. C7-T1: The disc space height is maintained. There are no focal disc protrusions or extrusions ident ified. The spinal canal is patent with no encroachment upon the spinal cord. The neural foramen are patent bilaterally. There is no evidence for nerve root encroachment. The apophyseal joints are withi n normal limits. IMPRESSION: 1. Broad-based disc protrusion/herniation at C5-6 with mild to moderate central canal stenosis and a symmetric right foraminal encroachment. There is suspicion of right-sided nerve root encroachment. 2. Bulging annulus at C6-7 with asymmetric right foraminal encroachment. The presence of right-sided nerve root encroachment cannot be completely excluded at this level. 3. There is also bulging of the annulus and mild central canal stenosis at C4-5. ACT 112: Negative or not required by law. Electronically signed by: Christopher Cordero M.D. 08/12/2021 1:28 PM
--- NOTE | 2021-08-13 06:07 | Electrocardiogram Report ---
Test Reason : Blood Pressure : / mmHG Vent. Rate : 062 BPM Atrial Rate : 062 BPM P-R Int : 122 ms QRS Dur : 092 ms QT Int : 446 ms P-R-T Axes : 073 068 081 degrees QTc Int : 452 ms Normal sinus rhythm with sinus arrhythmia Possible Left atrial enlargement Incomplete right bundle branch block Borderline ECG When compared with ECG of 11-AUG-2021 11:25, No significant change was found Confirmed by Marito Peterson ([id number]) on 08/13/2021 6:07:50 AM Referred By: REFERRED SELF Confirmed By:Marito Peterson
--- NOTE | 2021-08-16 11:05 | Orthopedic Consultation ---
Date of Consultation August 16, 2021 Assessment & Plan (1) Unstable angina: patient was discharged prior to my ability to evaluate. I was unavailable at the time of consultation and not production support manager. History of Present Illness Attending Physician: Fan Collado MD Allergies Allergy/AdvReac Type Severity Reaction Status Date / Time No Known Allergies Allergy Unverified 08/11/21 12:03 Home Medications Medication Instructions Recorded Confirmed Type naproxen 250 mg tablet 250 mg PO Q12H #14 tab 08/12/21 Rx omeprazole magnesium 10 mg oral 20 mg PO DAILY #30 ea 08/12/21 Rx suspension,delayed release (Prilosec) prednisone 50 mg tablet 50 mg PO DAILY 7 Days #7 tab 08/12/21 Rx Patient History Medical History Depression with anxiety Tobacco abuse Surgical History History of colonoscopy Family History Father Cancer Mother Peripheral vascular disease Social History Smoking Status: Current every day smoker Tobacco Type: Cigarettes packs per day: 1; Years Smoked: 38; Do You Dip or Chew Tobacco: No; Tobacco Cessation Education Requested by Patient: No Hx Alcohol Use: Yes Alcohol type: beer Hx Substance Use: Yes Non-Prescribed Medications: Marijuana Non-Prescribed Medications Comment: tried edible marijuana 1 week ago x2 Last Used Substance: Days (ago) Substance Use Type Other:: Pt used edible marijuana x1 last week Preferred Language: Uzbek Communication Ability: Effective 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
--- NOTE | 2021-08-26 13:34 | Discharge Summary ---
Date of Service August 26, 2021 Admission HPI Per Admitting Provider This is a 56-year-old female with significant past medical history of depression with anxiety, tobacco abuse and alcohol abuse who presents to ED after experiencing chest pain off and on x1 week. She initially noticed symptoms approximately 1 week ago when she was at rest. She developed left-sided chest pain that radiated to her left shoulder blade, her left jaw and her left arm that lasted approximately 1 minute. She felt this was all out and continue to monitor her symptoms. Over the past week she has had off-and-on symptoms. 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 Her symptoms were exactly the same, she rested and symptoms resolved in 1 minute. One time she did experience nausea when pain was slightly worse, but she is unable to tell if she is experiencing diaphoresis due to going through, "changes of life." She denies any lightheadedness, dizziness, palpitations or shortness of breath. She does admit to having a significant amount of stress in life as her 76-year-old mother does live with her. She feels like she has the same routine day in and day out and is unable to do anything. She has always been an anxious person throughout her life but has significantly gotten much worse. She admits to needing to discuss this with her primary care doctor. She is a never experienced symptoms like this in the past. Due to her recent symptoms she opted to be evaluated in ED today. Upon walking from the waiting room back to her room in situ an EKG was obtained which revealed T wave inversions in V1 V2 as well as right bundle jerome block and nonspecific ST changes in leads II and III. An EKG approximately 10 minutes later revealed normal sinus rhythm and normal ST and T waves throughout. She is a 1 pack/day smoker over the past 38 years. She drinks 2 beers a day. She does not take any prescription medicine and does not follow with a doctor regularly. Her mother has a known history of vascular disease requiring stents in her neck as well as her extremities but denies any history of heart disease. She is unaware of father's medical problems except for cancer as she states, "I did not know him." She has otherwise been in her normal state of health. In ED patient's vital signs remained stable. Her initial troponin was negative. She did receive 324 mg of aspirin. Principal Diagnosis cervical neuralgia Discharge Exam General: A&Ox3 HENT: NCAT, MMM, EOMI Eyes: PERRLA Neck: Supple, normal range of motion CVS: normal rate and rhythm Resp: b/l good breath sounds Abdomen: Soft, ND/NT, +BS Extremities: No c/c/e Neuro: face symmetric, strength grossly equal, no focal deficit Skin: warm and dry, no rashes/lesions/errythema MSK: normal ROM, no joint swelling/erythema Discharge Data Allergies Allergy/AdvReac Type Severity Reaction Status Date / Time No Known Allergies Allergy Unverified 08/11/21 12:03 Consultations 08/11/21 12:30 ED Decision to Admit Stat 08/11/21 12:35 Consult Cardiology Routine 08/12/21 13:58 Consult Orthopedic Surgery Routine Ordered Studies 08/12/21 10:01 MR cervical spine wo con Routine Hospital Course (1) Chest pain: (2) Acute electrocardiogram changes: This is a 56-year-old female with significant past medical history of depression with anxiety, tobacco abuse and alcohol abuse who presents to ED after experiencing chest pain off and on x1 week. She initially noticed symptoms approximately 1 week ago when she was at rest. Pt presenting with exertional EKG changes resolving at rest with a normal first troponin concerning for coronary ischemia patient may cardiac stress test which was negative. Patient also had cervical spine MRI and was found to 1. Broad-based disc protrusion/herniation at C5-6 with mild to moderate central canal stenosis and asymmetric right foraminal encroachment. There is suspicion of right-sided nerve root encroachment. 2. Bulging annulus at C6-7 with asymmetric right foraminal encroachment. The presence of right-sided nerve root encroachment cannot be completely excluded at this level. 3. There is also bulging of the annulus and mild central canal stenosis at C4-5. she was discharged on short course of steroids and NSAIDs. Patient was recommended to follow up with Spine surgery as an outpatient. The day of discharge patient was doing okay. Hemodynamically she was doing fine. Patient was discharged in stable condition. (3) Tobacco abuse: encourage smoking cessation given concern for ACS will hold on nicotine patch (4) Alcohol use: drinks 2 light beers daily, last drink 08/10 awss prn protocol (5) Depression with anxiety: pt with increase in anx due to social stressors encourage her to discuss with PCP post hospitalization to develop approp treatment regimen Total Time Total Time Spent Total Time Spent (In Minutes): 25 Discharge Plan Discharge Items Patient Disposition: Home - Self-Care Reason For Visit: CHEST PAIN INTO LEFT NECK,ARM AND SHOULDER Discharge Diagnosis: Likely cervical radiculopathy Activity: Resume your previous activity Non-emergency contact: Primary Care Provider Call non-emergency contact if: your symptoms worsen Follow-up/Referrals: Delfina Mcdaniels DO [Outside Practitioners] - (Date & Time 08/16/2021 11:00 AM Provider Rachel Page DO Department [facility] ) Diet: Heart Healthy Addtl Attending Provider Instructions: Take Prilosec, naproxen and prednisone for 7 days. You will need to see a liquified natural gas specialist. Referral has been sent. Pending Studies at Discharge: No Stand-Alone Forms: [employer], Smoking Cessation Medications and DC Order Prescriptions: New naproxen 250 mg tablet 250 mg PO Q12H Qty: 14 RF: 0 Prilosec 10 mg susp,delayed release for recon 20 mg PO DAILY Qty: 30 RF: 0 Discharge Orders: Discharge Order (Routine); Ordered 08/12/21 Ordered By: Fan Collado Admission Data Admit Date/Time: 08/11/21 12:35 Attending Provider: Fan Collado Admit Provider: Fan Collado Primary Care Provider: Christina Eli Other Providers: London Rios ; Josse Chapman Other Interventions: Discharge Summary Assessment (RN) Last Done: 08/12/21 14:50
== END 2021-08-12 15:15 | disposition home or self-care (01) | DRG 313 ==
LOC: ED 10:40 → EDINP 12:35
DX: F41.8 Other specified anxiety disorders; Z83.3 Family history of diabetes mellitus; R07.9 Chest pain, unspecified; F10.10 Alcohol abuse, uncomplicated; Z82.49 Family history of ischemic heart disease and other diseases of the circulatory system; F17.210 Nicotine dependence, cigarettes, uncomplicated